=== PATIENT | female | born 1985 | race Caucasian/White ===

== ENCOUNTER 2025-02-06 14:58 | Emergency (ER) | payer OTHER ==
[~2025-02-06] VITALS: Ht 152.4 cm; Wt 63.5 kg
[2025-02-06 15:10] VITALS: BP 136/82; TEMP 99.2; O2SAT 96
== END 2025-02-06 15:30 | disposition left against medical advice (07) ==
LOC: ER 14:58
DX: R56.9 Unspecified convulsions (principal); Z76.0 Encounter for issue of repeat prescription; Z53.21 Procedure and treatment not carried out due to patient leaving prior to being seen by health care provider